=== PATIENT | male | born 1995 | race Caucasian/White ===

== ENCOUNTER → 2019-01-13 | Outpatient (CLI) | payer OTHER ==
--- NOTE | 2019-01-13 15:04 | RADIOLOGY IMAGING REPORT ---
FACILITY: [facility] - [place] PATIENT NAME: Anjana Velásquez : 1995 MR: [id number] V: [id number] EXAM DATE: ORDERING PHYSICIAN: DAYLIN HEWITT TECHNOLOGIST: Location: [facility] [place] Patient: Anjana Velásquez : 1995 Visit/Account:[id number] Date of Sevice: 01/13/2019 ANKLE 3 VIEW MIN RIGHT History: Slipped on stairs. Right ankle pain. Comparison study: None. Findings: There is soft tissue swelling over the lateral malleolus without findings of an avulsion f racture or dislocation is a fracture. The talar dome and ankle mortise are intact. The base of the fifth metatarsal and talar neck are intact. IMPRESSION: Soft tissue swelling over the right lateral ribs without findings of a fracture. Report Dictated By: Edu Chacon MD at 01/13/2019 2:58 PM Report E-Signed By: Edu Chacon MD at 01/13/2019 2:58 PM WSN:[id number]
== END ==
LOC: RAD 13:43
PROVIDERS: ATTEND Physician Assistant
DX: M25.471 Effusion, right ankle (principal)